=== PATIENT | male | born 1980 | race Caucasian/White ===

== ENCOUNTER 2020-06-08 19:36 | Emergency (ER) | payer OTHER, SELFPAY ==
[2020-06-08 19:54] VITALS: BP 120/80; PULSE 125; RESP 17; TEMP 36.7; O2SAT 95; BMI 27.3
[2020-06-08 20:01] VITALS: O2SAT 96
--- NOTE | 2020-06-08 23:30 | W.ED.COVID ---
HPI - COVID General: Chief Complaint: COVID symptoms Stated Complaint: needing covid test Time Seen by Provider: 06/08/20 20:03 Triage information: No fever, cough or shortness of breath. Exposure to COVID + person last 14 days History of Present Illness: HPI Narrative: tested positive over the weekend and patient [facility] and does not want to getting by all sick and wants to be tested has no symptoms MD complaint: reported COVID exposure Prior covid testing: no COVID 19 common symptoms: negative fever(s), chills, non-productive cough, productive cough, dyspnea, body aches, headache(s), throat pain, nasal congestion, nausea or vomiting COVID 19 other sytmptoms: negative chest pain COVID Results: No Data to Display Review of Systems Const: Denies: fever(s), chills or body aches Eyes: Denies: change in vision or blurry vision ENMT: Denies: throat pain or nasal congestion Card: Denies: chest pain or dyspnea on exertion Resp: Denies: dyspnea, productive cough or non-productive cough GI: Denies: abdominal pain, nausea or vomiting : Denies: difficulty urinating Musc: Denies: extremity pain Skin/Breast: Denies: rash Neuro: Denies: headache(s) Psych: Denies: anxiety or depression Leighton/Lymph: Denies: easy bruising Physical Exam Const: COMMON NORMALS: no acute distress Psych: COMMON NORMALS: mental status grossly normal Course Vital Signs: Vital signs: Vital Signs Temperature 98.1 F 06/08/20 19:54 Pulse Rate 125 H 06/08/20 19:54 Respiratory Rate 17 06/08/20 19:54 Blood Pressure 120/80 06/08/20 19:54 Pulse Oximetry 96 06/08/20 20:01 MDM - COVID COVID Results: No Data to Display Discharge Plan Discharge Patient Disposition: Home Clinical Impression: Close exposure to severe acute respiratory syndrome coronavirus 2 (SARS-CoV-2) Condition: Stable Discharge Orders: Discharge Order (Routine); Ordered 06/08/20 Ordered By: Abbe Caro Discharge Diet: Usual diet Discharge Activity: Resume usual activity Activity Restrictions/Additional Instructions: Await test results. Wear a mask at all times. Self quarantine according to guidelines. Coding Level of Care Code ED Family Practice Physician Assistant for Chg Fwd Exam Expanded Problem Focused
== END 2020-06-08 20:27 | disposition home or self-care (01) ==
PROVIDERS: Emergency Provider Nurse Practitioner Family
DX: Z20.828 Contact with and (suspected) exposure to other viral communicable diseases (principal)
CPT/HCPCS: 12345; 99281